=== PATIENT | male | born 1965 | race Caucasian/White ===

== ENCOUNTER 2023-10-08 12:35 | Emergency (ER) | payer OTHER, SELFPAY ==
[2023-10-08 12:39] VITALS: BP 216/116
[2023-10-08 13:12] LABS: % Basophils 0.9 % (0-2); % Eosinophils 1.1 % (0-6); % Immature Granulocytes 0.4 % (0-0.5); % Lymphocytes 33.2 % (20.5-51.1); % Neutrophils 56.4 % (42.2-75.2); Absolute Basophils 0.1 10^3/uL (0-0.2); Absolute Eosinophils 0.1 10^3/uL (0-0.7); Absolute Lymphocytes 2.5 10^3/uL (1.2-3.4); Absolute Monocytes 0.6 10^3/uL (0.1-0.6); Absolute Neutrophils 4.3 10^3/uL (1.4-6.5); Hematocrit 41.8 % (39.0-52.0); Hemoglobin 15.2 g/dL (13.0-18.0); Mean Corp Hgb Conc. 36.4 g/dL (33.0-37.0); Mean Corpuscular Hgb 30.1 pg (27.0-31.0); Mean Corpuscular Volume 82.8 fL (80.0-94.0); Mean Platelet Volume 9.1 fL (7.4-10.4); Nucleated Red Blood Cells % 0 % (-); Platelet Count 189 10^3/uL (130-400); Red Blood Cell Count 5.05 10^6/uL (4.70-6.10); Red Cell Dist. Width 13.2 % (11.5-14.5); White Blood Cell Count 7.6 10^3/uL (4.8-10.8)
[2023-10-08 13:34] LABS: ALT (SGPT) 66 U/L (0-50); AST (SGOT) 46 U/L (17-59); Albumin 4.9 g/dl (3.5-5.0); Alkaline Phosphatase 74 U/L (38-126); Blood Urea Nitrogen 13 mg/dl (9-20); Calcium 9.7 mg/dl (8.4-10.2); Carbon Dioxide 26 mmol/L (22-30); Chloride 102 mmol/L (98-107); Glucose 98 mg/dl (70-99); Potassium 4.1 mmol/L (3.5-5.1); Sodium 137 mmol/L (135-145); Total Bilirubin 1.2 mg/dl (0.2-1.3); Total Protein 7.5 g/dl (6.3-8.2); eGFR > 60.00
[2023-10-08 15:00] VITALS: BP 196/131
--- NOTE | 2023-10-08 15:44 | ED.GENMED ---
Addendum entered and electronically signed by Annalise Spears PA-C 10/09/23 16:54:
10/09/2023-- Patient called today stating that his blood pressures have continued to be high today. Patient had had his 10 mg dose lisinopril this morning. Advised patient to take another 10 mg tablet before he goes to bed and to continue the 1
tablet of 10 mg lisinopril once daily. Patient states that he will call his primary care provider tomorrow at 8:30 AM when the office opens. I advised patient to return emergency department immediately should he experience any chest pain,
shortness of breath, dizziness, lightheadedness, weakness, difficulty speaking, numbness in his extremities,
Original Note:
History of Present Illness
General
Chief Complaint: Blood Pressure Problem
Source: patient
Exam Limitations: none
Time Seen by Provider: 10/08/23 14:56
Nursing documentation reviewed up to this point in time: agreed with
History of Present Illness
History of Present Illness:
58-year-old male with a past medical history of diabetes and hyperlipidemia presents to the emergency room for evaluation of asymptomatic hypertension. Patient reports that his mother was recently seen with high blood pressure and she was checking
her blood pressure at home yesterday. Patient says 'on a whim' he decided to check his own blood pressure and noted that it was elevated. He says that it was around 170 systolic. He says it is never been as high before and so over the past 24
hours he has been monitoring his blood pressure closely and today after returning from the store it peaked at over 200 systolic and so he came to the emergency room to be assessed. He has no symptoms. Denies any chest pain, shortness of breath,
dizziness, weakness or numbness in extremities, change in vision. He says that he had some mild high blood pressure at his last primary care appointment a few months ago but lost 10 pounds and has been doing an exercise regimen; he has not been on
any medications. He does admit that he has heavy salt intake in his diet�he says that his lunch typically consists of a deli sandwich with chips and his dinner frequently involves heavy salt including regular weekly trips to eat barbecue. He also
admits that he recently quit smoking.
Review of Systems
Review of Systems
All Other Systems: ROS reviewed and negative except as documented in HPI and ROS
Constitutional: Denies fever
Respiratory: Denies trouble breathing
Cardiac: Denies chest pain
ABD/GI: Denies abdominal pain, nausea or vomiting
: Denies dysuria or flank pain
Musculoskeletal: Denies neck pain or back pain
Neurological: Denies dizzy or headache
Phy Exam
Physical Exam
Physical Exam:
General: Awake, alert; no acute distress
Head: Normocephalic, atraumatic
Eyes: Conjunctiva normal, EOMI, pupils equal round and reactive to light bilaterally
Throat: Airway intact, handling secretions
Neck: Trachea midline, supple without meningismus
Lungs: Clear to auscultation bilaterally, no wheezing, rales, rhonchi
Heart: Regular rate and rhythm, no murmurs, gallops, or rubs
Abd: Soft, non distended, nontender
Neuro: Cranial nerves grossly intact, speech fluid, no gross motor or sensory deficits
Extremities: No edema in extremities, equal pulses in all extremities
Scores
Heart Failure Risk
Heart Failure Risk Score: Not Applicable
Heart Score for Chest Pain Patients
STEMI patient?: Not applicable
Withdrawal Assessment of Alcohol
Withdrawal Assessment Completed?: Not applicable
Course
Orders/Labs/Results
Orders:
Orders
10/08/23 12:46
Electrocardiogram (*1) Urgent
Reason for Study: Hypertension, Benign
EKG- Treatment ONCE
10/08/23 13:06
CMP [Comprehensive Metabolic Panel] Urgent
Complete Blood Count/With Diff Urgent
Glycohemoglobin (HgbA1c) Urgent
10/08/23 15:44
Labetalol HCl [Trandate] 10 mg IV NOW STA
Lisinopril [Zestril] 10 mg PO NOW STA
10/08/23 15:52
Add On- LAB Urgent
Tests Added?: Hb A1c
Abnormal Lab Results
10/08/23
13:06
ALT 66 H U/L
(0-50)
10/08/23 13:06
10/08/23 13:06
Vital Signs
Initial and Last Documented VS:
Initial Vital Signs
Temp Pulse Resp BP Pulse Ox
36.8 C 83 16 216/116 100
10/08/23 12:39 10/08/23 12:39 10/08/23 12:39 10/08/23 12:39 10/08/23 12:39
Last Documented Vital Signs
Temp Pulse Resp BP Pulse Ox
36.8 C 92 20 186/92 100
10/08/23 12:39 10/08/23 16:45 10/08/23 16:45 10/08/23 16:43 10/08/23 16:45
MDM/Problems Addressed
Differential Diagnosis Includes:
Asymptomatic hypertension
MDM/Problems Addressed:
58-year-old male presents with asymptomatic hypertension discovered incidentally when checking his blood pressure. Blood pressure 216/116 in triage, 196/131 during my assessment. Physical exam as above. EKG shows no STEMI. Screening labs in
triage including CBC and CMP unremarkable�notably normal creatinine. Will plan to treat with some IV labetalol and start on p.o. lisinopril for some blood pressure control here in the emergency room and he will need to continue antihypertensive
going forward. I did speak to him at length about lifestyle adjustments including monitoring his salt intake.
Blood pressure greatly improved with treatment in the emergency room. Patient remains asymptomatic. Stable for discharge at this point. Will start on oral antihypertensive. Advised regarding lifestyle adjustments as above. He will monitor his
blood pressure at home over the next few days and follow-up with his primary doctor this week to discuss further adjustments to his medication. Spoke about return precautions all questions answered.
Acute Exacerbation and/or Progression of Chronic Illness:
Acutely hypertensive managed as above
Acute Exacerbation and/or Progression of Chronic Illness: HTN
*Pulse Oximetry
Patient hypoxic: no
*EKG
Interpreted by ED Provider?: Yes
Heart Rate: 84
Rate: normal
Rhythm: sinus
[place]: normal axis
Interval: normal interval
QRS Pattern: normal QRS
Ischemia: no ischemia
*Critical Care Note
Total Time (30-74mins, 75-104mins- exclusive of procedures): Not Applicable
Data Reviewed
Review of Other/Old Records Reveals: Labs
Source: patient and records
ED Attending Note
-
Portions of this chart may have been created with voice recognition software.� Occasional wrong word or��sound alike� substitutions may have occurred due to the inherent limitations of voice recognition software.
Discharge Plan
Departure
Patient Disposition: Home (Routine Discharge)
Date of Disposition: 10/08/23
Time of Disposition: 17:11
Patient with high blood pressure during this ER visit?: Yes
Discharge Problem:
Hypertension
Instructions: High Blood Pressure (DC)
Prescriptions:
New
lisinopril 10 mg tablet
10 mg PO DAILY Qty: 30 0RF
Referrals:
Yannick Hanna MD [Family Provider] - Follow up in 5-7 days
Activity Restrictions/Additional Instructions:
Thank you for visiting the Emergency Department at [facility].
1. Please schedule a follow up appointment as directed. Call first thing tomorrow morning to make an appointment.
2. If indicated, please take your medications as instructed and indicated on discharge paperwork.
3. If any of your symptoms do not improve, or persist, or become more severe within 6-12 hours, please return to the emergency department for further care.
4. Please return to the emergency department if you develop a headache, neck pain/stiffness, fever greater than 100.4F, chest pain, shortness of breath, persistent nausea, vomiting, slurred speech, difficulty walking, numbness/tingling, weakness,
signs of infection or any other symptoms that are worrisome to you.
Please call [phone] if you have any questions.
Discharge Date and Time
Print Language: HUNGARIAN
[2023-10-08] MEDS: TRANDATE 10 MG IV (16:03)
[2023-10-08] MEDS: ZESTRIL 10 MG PO (16:04)
[2023-10-08 16:24] VITALS: BP 206/91
[2023-10-08 16:43] VITALS: BP 186/92
[2023-10-08 17:00] VITALS: BP 171/90
[2023-10-09 09:38] LABS: Glycohemoglobin (HgbA1c) 6.1 % (4.0-5.6)
== END 2023-10-08 17:45 | disposition home or self-care (01) ==
LOC: EMR 12:35
PROVIDERS: Emergency Medicine; EMERGENCY PHYSICIAN Emergency Medicine; FAMILY PHYSICIAN Family Medicine
DX: I10 Essential (primary) hypertension (principal); Z87.891 Personal history of nicotine dependence; E11.9 Type 2 diabetes mellitus without complications; E78.5 Hyperlipidemia, unspecified
CPT/HCPCS: 99284; 96374; 80053; 83036; 85025; 93005

== ENCOUNTER 2024-02-24 07:29 | Emergency (ER) | payer OTHER, SELFPAY ==
[2024-02-24 07:31] VITALS: BP 199/106
[2024-02-24 08:43] VITALS: BMI 26.7
[2024-02-24 08:54] VITALS: BP 161/92
[2024-02-24 09:00] VITALS: BP 179/100
[2024-02-24 09:06] LABS: % Basophils 0.4 % (0-2); % Eosinophils 0.5 % (0-6); % Immature Granulocytes 0.4 % (0-0.5); % Lymphocytes 15.9 % (20.5-51.1); % Monocytes 7.9 % (1.7-9.3); % Neutrophils 74.9 % (42.2-75.2); Absolute Basophils 0.1 10^3/uL (0-0.2); Absolute Eosinophils 0.1 10^3/uL (0-0.7); Absolute Lymphocytes 1.8 10^3/uL (1.2-3.4); Absolute Monocytes 0.9 10^3/uL (0.1-0.6); Absolute Neutrophils 8.4 10^3/uL (1.4-6.5); Hematocrit 47.7 % (39.0-52.0); Hemoglobin 16.4 g/dL (13.0-18.0); Mean Corp Hgb Conc. 34.4 g/dL (33.0-37.0); Mean Corpuscular Hgb 30.1 pg (27.0-31.0); Mean Corpuscular Volume 87.7 fL (80.0-94.0); Mean Platelet Volume 9.2 fL (7.4-10.4); Nucleated Red Blood Cells % 0 % (-); Platelet Count 228 10^3/uL (130-400); Red Blood Cell Count 5.44 10^6/uL (4.70-6.10); Red Cell Dist. Width 13.2 % (11.5-14.5); White Blood Cell Count 11.2 10^3/uL (4.8-10.8)
--- NOTE | 2024-02-24 09:07 | ED.GENMED ---
History of Present Illness
General
Chief Complaint: Blood Pressure Problem
Source: patient
Exam Limitations: none
Time Seen by Provider: 02/24/24 08:04
History of Present Illness
History of Present Illness:
58-year-old male with history of hypertension presents complaining of left sided abdominal pain constipation and elevated blood pressure readings. He is on lisinopril 20 mg daily. He has not had a bowel movement in about 4 days. There has been no
nausea or vomiting. He denies shortness of breath but does note occasional twinges in the left side of his chest. He has been doing well with his blood pressure until the recent several days. He also notes his heart rate is fast. He denies any
recent travel or surgery. No leg swelling or calf pain. He had an appointment today with his family doctor for his blood pressure but he canceled it and came here
Phy Exam
Physical Exam
Physical Exam:
General: Well-appearing male no acute respiratory distress
HEENT: Normocephalic atraumatic
Heart: Tachycardic but regular
lungs: Clear no wheeze
Abdomen soft but slightly tender to left mid abdomen no guarding rebound normal bowel sounds
Extremities: No cyanosis
Course
Orders/Labs/Results
Orders:
Orders
02/24/24 07:34
EKG [Electrocardiogram (*1)] Urgent
Reason for Study: Tachycardia
EKG- Treatment ONCE
02/24/24 08:52
Complete Blood Count/With Diff Urgent
Troponin I Urgent
02/24/24 09:18
Comprehensive Metabolic Panel Urgent
02/24/24 09:47
D-Dimer Urgent
02/24/24 10:18
CT Pe/abd/pel W Urgent
Reason For Exam: tachycardia, cp, elevated d-dimer
02/24/24 12:04
Metoprolol [Lopressor] 5 mg IV NOW STA
02/24/24 12:34
Metoprolol [Lopressor] 25 mg PO NOW STA
02/24/24 12:35
Metoprolol [Lopressor] 25 mg .ROUTE .STK-MED ONE
02/24/24 12:48
Magnesium Citrate [Citroma] 300 ml PO ONCE ONE
Abnormal Lab Results
02/24/24 02/24/24 02/24/24
08:52 09:18 09:47
WBC 11.2 H 10^3/uL
(4.8-10.8)
Absolute Neuts (auto) 8.4 H 10^3/uL
(1.4-6.5)
Absolute Monos (auto) 0.9 H 10^3/uL
(0.1-0.6)
Lymphocytes % 15.9 L %
(20.5-51.1)
D-Dimer 0.89 H ug/mlFEU
(0.00-0.50)
Potassium 5.3 H mmol/L
(3.5-5.1)
Chloride 97 L mmol/L
(98-107)
Glucose 173 H mg/dl
(70-99)
Albumin 5.2 H g/dl
(3.5-5.0)
02/24/24 08:52
02/24/24 09:18
Vital Signs
Initial and Last Documented VS:
Initial Vital Signs
Temp Pulse Resp BP Pulse Ox
99.1 F 133 16 199/106 100
02/24/24 07:31 02/24/24 07:31 02/24/24 07:31 02/24/24 07:31 02/24/24 07:31
Last Documented Vital Signs
Temp Pulse Resp BP Pulse Ox
99.1 F 87 16 164/95 99
02/24/24 07:31 02/24/24 12:36 02/24/24 07:31 02/24/24 12:36 02/24/24 10:00
MDM/Problems Addressed
Differential Diagnosis Includes:
Elevated blood pressure readings at home with tachycardia here and abdominal discomfort. Abdominal discomfort could be constipation versus reticulitis. Do not suspect bowel obstruction. Elevated blood pressure could be related to the discomfort
or worsening underlying hypertension. Patient is tachycardic will order D-dimer. If unlikely to be PE consider adding metoprolol given hypertension and tachycardia. CT pending of the abdomen
I reviewed EKG which shows sinus tachycardia
*Critical Care Note
Total Time (30-74mins, 75-104mins- exclusive of procedures): Not Applicable
Update Note
Update Note:
D-dimer slightly elevated. PE study was ordered secondary to persistent tachycardia. There is no PE. CT of the abdomen secondary to abdominal pain was ordered which demonstrated large amount of stool in the right colon otherwise negative. Labs
reviewed otherwise without significant finding. He was given Lopressor 5 mg IV which improved his heart rate and blood pressure slightly. Will send patient home on metoprolol 25 mg daily on top of his lisinopril. He is to follow-up with his
family doctor. He was also given a bottle of magnesium citrate for his constipation
ED Attending Note
-
Portions of this chart may have been created with voice recognition software.� Occasional wrong word or��sound alike� substitutions may have occurred due to the inherent limitations of voice recognition software.
Discharge Plan
Departure
Patient Disposition: Home (Routine Discharge)
Date of Disposition: 02/24/24
Time of Disposition: 14:01
Patient with high blood pressure during this ER visit?: No
Discharge Problem:
Hypertension, Constipation
Instructions: High Blood Pressure (DC), Constipation, Adult ED
Prescriptions:
New
metoprolol tartrate 25 mg tablet
25 mg PO DAILY Qty: 14 0RF
No Action
metformin 500 mg Tablet
250 mg PO BID@0800,1700
atorvastatin 20 mg tablet
20 mg PO HS
lisinopril 20 mg tablet
20 mg PO DAILY
Vtama 1 % cream
1 applic TOPICAL DAILYPRN PRN (Reason: eczema)
Referrals:
Yannick Hanna MD [Family Provider] -
Activity Restrictions/Additional Instructions:
Use magnesium citrate as directed. Continue with metoprolol 25 mg daily on top of her lisinopril. Please follow-up with your family doctor for blood pressure recheck. Return if needed otherwise
Interventions
Interventions:
*Risk Screen - Suicide Last Done: 02/24/24 07:31
*General Assessment Last Done: 02/24/24 07:31
*Neglect/Abuse Screening Last Done: 02/24/24 07:31
ED- Cardiac Assessment Last Done: 02/24/24 09:23
ED- Neurological Assessment Last Done: 02/24/24 09:22
ED- Pulmonary Assessment Last Done: 02/24/24 09:22
Discharge Date and Time
Print Language: NAURUAN
[2024-02-24 09:35] LABS: Troponin I < 0.012 ng/ml
[2024-02-24 09:52] LABS: ALT (SGPT) 33 U/L (0-50); AST (SGOT) 30 U/L (17-59); Albumin 5.2 g/dl (3.5-5.0); Alkaline Phosphatase 62 U/L (38-126); Blood Urea Nitrogen 12 mg/dl (9-20); Calcium 9.9 mg/dl (8.4-10.2); Carbon Dioxide 29 mmol/L (22-30); Chloride 97 mmol/L (98-107); Estimated Creatinine Clearance 116 ml/min; Glucose 173 mg/dl (70-99); Potassium 5.3 mmol/L (3.5-5.1); Sodium 136 mmol/L (135-145); eGFR > 60.00
[2024-02-24 10:00] VITALS: BP 156/95
[2024-02-24 10:12] LABS: D-Dimer 0.89 ug/mlFEU (0.00-0.50)
[2024-02-24 12:00] VITALS: BP 169/99
[2024-02-24] MEDS: LOPRESSOR 5 MG IV (12:20)
[2024-02-24] MEDS: LOPRESSOR 25 MG PO (12:36)
[2024-02-24] MEDS: CITROMA 300 ML PO (13:52)
[2024-02-24 14:43] VITALS: BP 139/79
== END 2024-02-24 14:45 | disposition home or self-care (01) ==
LOC: EMR 07:29
PROVIDERS: Physician Assistant; EMERGENCY PHYSICIAN Emergency Medicine; FAMILY PHYSICIAN Family Medicine
DX: K59.00 Constipation, unspecified (principal); I10 Essential (primary) hypertension
CPT/HCPCS: 99285; 96374; 71275; 74177; 80053; 84484; 85025; 85379; 93005; Q9967